=== PATIENT | male | born 1960 | race Two or more races ===

== ENCOUNTER 2021-03-21 14:40 | Emergency (ER) | payer OTHER ==
[~2021-03-21] VITALS: Ht 177.8 cm; Wt 95.5 kg
[2021-03-21] MEDS ORDERED: AMLO2.5T96 PO (14:54)
[2021-03-21] MEDS ORDERED: POVIDONE-IODINE 10% 15 ML SOLUTION UD TP ONE (16:15)
[2021-03-21] MEDS ORDERED: BACITRACIN 0.9 GM PACKET OINTMENT TP ONE (16:15)
[2021-03-21] MEDS ORDERED: LIDOCAINE 1% 10 ML VIAL ID ONE (16:15)
[2021-03-21] MEDS ORDERED: PERTUSS(ACELL),DIPH,TET VAC/PF 0.5 ML SYRINGE IM. ONE (16:15)
[2021-03-21] MEDS ORDERED: IBUPROFEN 800 MG TABLET PO ONE (16:15)
[2021-03-21 17:30] VITALS: BP 156/87
== END 2021-03-21 18:01 | disposition home or self-care (01) ==
LOC: EMS 14:42
DX: S61.210A Laceration without foreign body of right index finger without damage to nail, initial encounter (principal); I10 Essential (primary) hypertension; W26.0XXA Contact with knife, initial encounter; Y93.89 Activity, other specified; Y92.89 Other specified places as the place of occurrence of the external cause; Y99.8 Other external cause status
CPT/HCPCS: 12001; 90471; 90715; 99283; J3490

== ENCOUNTER 2023-09-15 13:08 | Emergency (ER) | payer OTHER ==
[~2023-09-15] VITALS: Ht 180.3 cm; Wt 90.9 kg
[~2023-09-15 13:08] MED LIST: AMLO2.5T96 PO
[2023-09-15 13:11] VITALS: TEMP 98.2
[2023-09-15 14:51] VITALS: BP 185/94; PULSE 87; RESP 18
[2023-09-15] MEDS ORDERED: KETOROLAC TROMETHAMINE 30 MG/ML VIAL IM ONE (15:00)
[2023-09-15] MEDS ORDERED: ACETAMINOPHEN 500 MG TABLET PO ONE (15:00)
[2023-09-15 15:05] LABS: ANION GAP 10 mmol/L (8-16); BASOPHILS % (AUTO) 1.1 % (0.0-2.0); CALCIUM, TOTAL 8.8 mg/dL (8.8-10.5); CARBON DIOXIDE 26 mmol/L (22-29); CHLORIDE 109 mmol/L (98-107); CREATININE 0.75 mg/dL (0.60-1.30); GLOMERULAR FILTR. RATE CALC > 60 mL/min (>60); GLUCOSE,RANDOM 114 mg/dL (70-110); HEMATOCRIT 46.8 % (41-53); HEMOGLOBIN 16.5 g/dL (13.5-17.5); LYMPHOCYTES # (AUTO) 2.1 K/uL (1.0-4.8); LYMPHOCYTES % (AUTO) 24.8 % (22.0-44.0); MEAN CORPUSCULAR HEMOGLOBIN 34.3 pg (26.0-34.0); MEAN CORPUSCULAR HGB CONC 35.2 G/dL (31.0-37.0); MEAN CORPUSCULAR VOLUME 98 fL (80-100); MONOCYTES # (AUTO) 0.8 K/uL (0.1-1.0); MONOCYTES % (AUTO) 9.2 % (2.0-9.0); NEUTROPHILS # (AUTO) 5.4 K/uL (1.8-7.7); NEUTROPHILS % (AUTO) 62.9 % (40.0-70.0); PLATELET COUNT (AUTO) 280 K/uL (150-450); POTASSIUM 3.9 mmol/L (3.5-5.1); RED BLOOD CELL COUNT(AUTO) 4.81 MIL/uL (4.50-5.90); RED CELL DISTRIBUTION WIDTH 13.8 % (11.5-14.5); SODIUM SERUM 145 mmol/L (136-145); UREA NITROGEN, BLOOD 14 mg/dL (7-18); WHITE BLOOD COUNT (AUTO) 8.7 K/uL (4.5-11.0)
[2023-09-15 15:13] LABS: TROPONIN I-HIGH SENSITIVITY 11 ng/L (<76)
[2023-09-15 15:23] LABS: B-TYPE NATRIURETIC PEPTIDE 8 pg/mL (0-100)
[2023-09-15 15:31] LABS: ALANINE AMINOTRANSFERASE 46 U/L (12-78); ALKALINE PHOSPHATASE 71 U/L (46-116); ASPARTATE AMINOTRANSFERASE 18 U/L (15-37); BILIRUBIN,TOTAL 0.4 mg/dL (0.1-1.0); CREATINE KINASE, TOTAL ONLY 117 U/L (39-308); TOTAL PROTEIN, SERUM 7.6 g/dL (6.4-8.2)
[2023-09-15] MEDS ORDERED: ACET-3385 PO (15:42)
[2023-09-15] MEDS ORDERED: IBUP-1492 PO (15:42)
== END 2023-09-15 16:41 | disposition home or self-care (01) ==
LOC: EMS 13:21
DX: M54.16 Radiculopathy, lumbar region (principal); I10 Essential (primary) hypertension
CPT/HCPCS: 99284; 80053; 82550; 83880; 84484; 85025; 36415; 93005; 96372; J1885